=== PATIENT | female | born 1955 | race Caucasian/White ===

== ENCOUNTER 2020-12-05 11:55 | Emergency (ER) | payer BC ==
[~2020-12-05] VITALS: Ht 165.1 cm; Wt 73.0 kg
[2020-12-05] MEDS ORDERED: IOHEXOL-350 100 ML BOTTLE ONE (13:03)
[2020-12-05 13:12] LABS: BASOPHILS % 0.6 % (0.0-2.0); HEMATOCRIT. 43.3 % (36.0-48.0); HEMOGLOBIN. 14.8 g/dL (12.0-16.0); LYMPHOCYTES % 20.3 % (20.0-50.0); MEAN CORPUSCULAR HEMOGLOBIN 28.7 pg (28.0-32.0); MEAN CORPUSCULAR VOLUME 83.8 fL (81.0-99.0); MEAN PLATELET VOLUME 8.7 fl (7.4-10.4); MONOCYTES % 6.9 % (2.0-8.0); NEUTROPHILS % 70.2 % (40.0-76.0); PLATELET 292 x1000/uL (130-400); RED BLOOD CELL COUNT 5.17 mill/uL (4.2-5.4)
[2020-12-05 13:35] LABS: CHLORIDE 104 mEq/L (98-107)
[2020-12-05 17:20] VITALS: BP 148/80
== END 2020-12-05 17:27 | disposition home or self-care (01) ==
LOC: ER 12:18
DX: R07.89 Other chest pain (principal); M51.9 Unspecified thoracic, thoracolumbar and lumbosacral intervertebral disc disorder
CPT/HCPCS: 36415; 70450; 70498; 71045; 71275; 80053; 83880; 84484; 85025; 99285; Q9967